=== PATIENT | female | born 1995 | race Caucasian/White ===

== ENCOUNTER 2020-06-25 20:13 | Inpatient (IN) | payer OTHER ==
[2020-06-25 20:53] LABS: HCT 37.8 % (37.0-47.0); HGB 12.8 g/dl (12.5-16.0); MCHC 33.9 g/dL (32.0-36.0); MCV 94.5 fL (78.0-100.0); MPV 10.2 fL (6.0-9.5); WBC 9.8 K/uL (4.0-10.5)
[2020-06-25 20:54] LABS: BILIRUBIN NEGATIVE (NEGATIVE); BLOOD NEGATIVE Ery/uL (NEGATIVE); CLARITY CLEAR (CLEAR); COLOR YELLOW (YELLOW); GLUCOSE (U) NORMAL (NORMAL); LEUKOCYTES NEGATIVE Leu/uL (NEGATIVE); NITRITE NEGATIVE (NEGATIVE); PROTEIN NEGATIVE (NEGATIVE); UROBILINOGEN 0.2 mg/dL (0.2-1.0); pH 6.5 (5.0-9.0)
[2020-06-25 21:10] LABS: ALBUMIN 2.8 g/dL (3.4-5.0); BILIRUBIN - TOTAL 0.2 mg/dL (0.2-1.0); BUN/CREAT RATIO (CALC) 22.4 RATIO; CREATININE 0.49 mg/dL (0.51-0.95); GLOBULIN (CALCULATION) 3.4 g/dL; POTASSIUM 3.9 mmol/L (3.5-5.1); TOTAL PROTEIN 6.2 g/dL (6.4-8.2)
[2020-06-26 09:49] LABS: PROTEIN:CREATININE 0.26 RATIO; URINE CREATININE 50.38 mg/dL (29.00-226.00); URINE TOTAL PROTEIN-RANDOM 13.3 mg/dL (<11.9)
[2020-06-26 10:15] LABS: ALBUMIN 2.5 g/dL (3.4-5.0); BILIRUBIN - TOTAL 0.3 mg/dL (0.2-1.0); BUN/CREAT RATIO (CALC) 19.6 RATIO; CREATININE 0.51 mg/dL (0.51-0.95); GLOBULIN (CALCULATION) 3.9 g/dL; POTASSIUM 3.6 mmol/L (3.5-5.1); TOTAL PROTEIN 6.4 g/dL (6.4-8.2); URIC ACID 5.5 mg/dL (2.6-6.2)
[2020-06-27 05:23] LABS: HCT 35.6 % (37.0-47.0); HGB 11.5 g/dl (12.5-16.0); MCH 31.5 pg (25.0-31.0); MCHC 32.3 g/dL (32.0-36.0); MCV 97.5 fL (78.0-100.0); MPV 10.2 fL (6.0-9.5); RBC 3.65 M/uL (4.20-5.40); RDW 14.2 % (11.5-14.0); WBC 14.5 K/uL (4.0-10.5)
[2020-06-28] MEDS ORDERED: PRENATAL FORMU1 EACH PO (09:56)
[2020-06-28] MEDS ORDERED: IBUPROFEN600 MG PO (09:58)
[2020-06-28] MEDS ORDERED: FEOSOL325 MG PO (09:58)
[2020-06-28] MEDS ORDERED: COLACE100 MG PO (09:59)
[2020-06-28] MEDS ORDERED: LABETALOL HCL200 MG PO (10:00)
--- NOTE | 2020-06-29 09:43 | NUR ---
PT. D/C HOME WITH BABY.
== END 2020-06-28 13:09 | disposition home or self-care (01) | DRG 807 ==
LOC: FOB 20:13 → FOD 20:28 → FOB 20:29
PROVIDERS: Obstetrics & Gynecology; ADMIT Obstetrics & Gynecology
PROC: 10E0XZZ Delivery of Products of Conception, External Approach (ICD-10-PCS; principal; 2020-06-25)
PROC: 0HQ9XZZ Repair Perineum Skin, External Approach (ICD-10-PCS; 2020-06-25)
PROC: 3E0234Z Introduction of Serum, Toxoid and Vaccine into Muscle, Percutaneous Approach (ICD-10-PCS; 2020-06-25)
PROC: 30233N1 Transfusion of Nonautologous Red Blood Cells into Peripheral Vein, Percutaneous Approach (ICD-10-PCS; 2020-06-25)
DX: O24.429 Gestational diabetes mellitus in childbirth, unspecified control (principal); Z37.0 Single live birth; Z3A.39 39 weeks gestation of pregnancy; O99.213 Obesity complicating pregnancy, third trimester; E66.9 Obesity, unspecified; O13.3 Gestational [pregnancy-induced] hypertension without significant proteinuria, third trimester; O70.0 First degree perineal laceration during delivery; Z20.822 Contact with and (suspected) exposure to COVID-19; Z67.11 Type A blood, Rh negative
CPT/HCPCS: 36415; 80053; 81003; 82009; 82570; 82947; 82962; 83615; 84156; 84550; 85461; 86850; 86900; 86901; J1200; J2790; J7120; J7121; U0002